=== PATIENT | female | born 1950 | race African-American/Black ===

== ENCOUNTER 2022-06-25 15:34 | Outpatient (CLI) | payer MEDICARE, OTHER | END 2022-06-25 15:35 | disposition home or self-care (01) | LOC: CSHMAMMO 15:34 | PROVIDERS: ATTEND Family Medicine | DX: Z12.31 Encounter for screening mammogram for malignant neoplasm of breast (principal); Z13.820 Encounter for screening for osteoporosis; M85.88 Other specified disorders of bone density and structure, other site; Z78.0 Asymptomatic menopausal state | CPT/HCPCS: 77063; 77067; 77080 ==

== ENCOUNTER 2023-06-29 10:57 | Outpatient (CLI) | payer OTHER | END 2023-06-29 10:58 | disposition home or self-care (01) | LOC: CSHMAMMO 10:57 | PROVIDERS: ATTEND Family Medicine | DX: Z12.31 Encounter for screening mammogram for malignant neoplasm of breast (principal) | CPT/HCPCS: 77063; 77067 ==